=== PATIENT | male | born 1995 | race Caucasian/White ===

== ENCOUNTER 2022-06-03 18:39 | Emergency (ER) | payer BC ==
[2022-06-03 19:58] LABS: URINE APPEARANCE CLOUDY; URINE BILIRUBIN NEGATIVE (NEGATIVE); URINE BLOOD NEGATIVE (NEGATIVE); URINE COLOR AMBER; URINE GLUCOSE NEGATIVE (NEGATIVE); URINE KETONE NEGATIVE (NEGATIVE); URINE LEUKOCYTE ESTERASE NEGATIVE (NEGATIVE); URINE NITRATE NEGATIVE (NEGATIVE); URINE PROTEIN(semi-quant) NEGATIVE (NEGATIVE); URINE UROBILINOGEN NORMAL (NORMAL); URINE WBC 0-1 /hpf (0-3)
[2022-06-03 20:32] LABS: BASO # 0.02 K/mm3 (0.02-0.10); EOS # 0.09 K/mm3 (0.04-0.40); EOS % 0.9 % (0.0-4.0); HEMOGLOBIN 15.8 g/dL (13.5-18.0); LYMPH# 1.44 K/mm3 (1.50-4.00); MEAN CELL VOLUME 86 fl (78-100); MEAN CORPUSCULAR HEMOGLOBIN 29 pg (27-31); MEAN CORPUSCULAR HGB CONC 34 g/dL (33-37); MEAN PLATELET VOLUME 9.9 fl (7.4-10.4); MONO # 0.54 K/mm3 (0.20-0.80); NEU # 8.18 K/mm3 (1.40-6.50); PLATELET COUNT 332 K/mm3 (130-400); RED BLOOD COUNT 5.38 M/mm3 (4.20-5.60); RED CELL DISTRIBUTION WIDTH 11.7 % (11.5-14.5); WHITE BLOOD COUNT 10.3 K/mm3 (4.8-10.8)
[2022-06-03] MEDS ORDERED: MORGIDOX 1X100100 MG PO (20:49)
[2022-06-03 22:16] VITALS: BP 132/74
== END 2022-06-03 22:17 | disposition home or self-care (01) ==
LOC: ED 18:39
PROVIDERS: Family Medicine
DX: N45.1 Epididymitis (principal); Z28.310 Unvaccinated for COVID-19
CPT/HCPCS: J0696